=== PATIENT | female | born 1995 | race African-American/Black ===

== ENCOUNTER 2017-09-28 21:06 | Emergency (ER) | payer OTHER ==
[2017-09-28 22:14] LABS: BASOPHILS # (AUTO) 0.1 10^3/uL (0.0-0.1); BASOPHILS % (AUTO) 1.8 %; EOSINOPHILS # (AUTO) 0.4 10^3/uL (0.0-0.7); EOSINOPHILS % (AUTO) 6.3 %; HGB - HEMOGLOBIN 12.2 g/dL (12.0-16.0); LYMPHOCYTES # (AUTO) 2.3 10^3/uL (1.5-3.5); LYMPHOCYTES % (AUTO) 40.4 %; MEAN CORPUSCULAR HEMOGLOBIN 27.8 pg (27.0-31.0); MEAN CORPUSCULAR HGB CONC 32.9 g/dL (32.0-36.0); MEAN CORPUSCULAR VOLUME 84.5 fL (81.0-99.0); MEAN PLATELET VOLUME 8.6 fL (7.9-10.8); MONOCYTES # (AUTO) 0.4 10^3/uL (0.0-1.0); MONOCYTES % (AUTO) 6.6 %; NEUTROPHILS # (AUTO) 2.6 10^3/uL (1.5-6.6); NEUTROPHILS % (AUTO) 44.9 %; PLT - PLATELET COUNT 287 10^3/uL (130-450); RED BLOOD COUNT 4.39 10^6/uL (4.20-5.40); RED CELL DISTRIBUTION WIDTH 14.6 % (12.0-15.0); WHITE BLOOD COUNT 5.7 x10^3/uL (4.8-10.8)
[2017-09-28 22:26] LABS: ALBUMIN 4.3 g/dL (3.2-5.5); ALBUMIN/GLOBULIN RATIO 1.2 (1.0-2.2); BILIRUBIN,TOTAL 0.3 mg/dL (0.2-1.0); CALCIUM 8.8 mg/dL (8.5-10.3); CREATININE 0.8 mg/dL (0.4-1.0); TOTAL PROTEIN 7.8 g/dL (6.7-8.2)
[2017-09-28 23:31] LABS: BILIRUBIN,URINE NEGATIVE (NEGATIVE); GLUCOSE, URINE (UA) NEGATIVE (NEGATIVE); KETONES,URINE (UA) NEGATIVE (NEGATIVE); LEUKOCYTE ESTERASE, URINE TRACE (NEGATIVE); NITRITE,URINE NEGATIVE (NEGATIVE); OCCULT BLOOD,URINE MODERATE (NEGATIVE); PH,URINE 6.5 PH (5.0-7.5); PROTEIN,URINE NEGATIVE (NEGATIVE); UROBILINOGEN,URINE 0.2 (NORMAL) E.U./dL (NORMAL)
[2017-09-28 23:34] LABS: CLARITY,URINE CLEAR (CLEAR); HCG UR QUAL NEGATIVE
[2017-09-28 23:38] LABS: BACTERIA,URINE Rare /HPF (None Seen); RBC,URINE 0-5 /HPF (0-5); SQUAMOUS EPITHELIAL CELL,UR MANY Squamous (<= Few)
--- NOTE | 2017-09-29 01:01 | ED Physician Documentation ---
PD HPI ABD PAIN - Stated complaint Stated Complaint: ABD PX - Chief complaint Chief Complaint: Abd Pain - History obtained from History obtained from: Patient - History of Present Illness Timing - onset: How many days ago (2) Timing - duration: Days Timing - details: Gradual onset, Waxing and waning Pain level now: 4 Quality: Pain Location: LLQ Radiation: (left pelvis) Improved by: Other (no ameliorating factors) Worsened by: Palpation Associated symptoms: Vaginal dc. No: Fever, Nausea, Vomiting, Dysuria Similar symptoms before: Other (approximately one year ago, had similar symptoms , evaluated in another ED, cannot recall diagnosis but says she was put on antibiotics for pelvic infection) Review of Systems Constitutional: reports: Reviewed and negative Cardiac: reports: Reviewed and negative Respiratory: reports: Reviewed and negative GI: reports: Abdominal Pain. denies: Nausea, Vomiting : reports: Discharge, Vaginal bleeding (spotting). denies: Dysuria, Frequency , Now EGA PD PAST MEDICAL HISTORY - Past Medical History Past Medical History: No Cardiovascular: None Respiratory: None Neuro: None Endocrine/Autoimmune: None GI: None PRINCIPAL ACCOUNTS CLERK: None : None HEENT: None Psych: None Musculoskeletal: None Derm: None - Past Surgical History Past Surgical History: No - Present Medications Home Medications: Ambulatory Orders Medication Instructions Recorded Confirmed Metronidazole [Flagyl] 500 mg PO BID #14 tablet 09/29/17 - Allergies Allergies/Adverse Reactions: Allergies Allergy/AdvReac Type Severity Reaction Status Date / Time No Known Drug Allergies Allergy Verified 09/28/17 21:16 - Social History Does the pt smoke?: No Smoking Status: Never smoker Does the pt drink ETOH?: No Does the pt have substance abuse?: No - Immunizations Immunizations are current?: Yes - POLST Patient has POLST: No PD ED PE NORMAL - Vitals Vital signs reviewed: Yes - General General: Alert and oriented X 3, No acute distress, Well developed/nourished - Cardiac Cardiac: RRR, No murmur - Respiratory Respiratory: No respiratory distress, Clear bilaterally - Abdomen Abdomen: Normal bowel sounds, Soft, Non distended, Other (left anterior pelvic tenderness to palpation) - Back Back: No CVA TTP PD ED PE EXPANDED - Female Female : Normal external, Vaginal Discharge (mild amount thick, brown discharge), Choral Director present (MAUREEN Treviño). No: Skin lesions, CMT Results - Vitals Vitals: Vital Signs - 24 hr 09/28/17 09/29/17 09/29/17 21:15 02:10 03:11 Temperature 36.7 C Heart Rate 66 65 Respiratory 16 17 17 Rate Blood Pressure 136/72 H 114/69 O2 Saturation 100 99 09/29/17 09/29/17 03:46 04:23 Temperature Heart Rate Respiratory 15 16 Rate Blood Pressure O2 Saturation Oxygen O2 Source Room air - Labs Labs: Microbiology 09/29/17 04:25 Wet Prep - Final Vaginal Laboratory Tests 09/28/17 09/28/17 09/28/17 22:11 22:11 23:20 WBC 5.7 RBC 4.39 Hgb 12.2 Hct 37.1 MCV 84.5 MCH 27.8 MCHC 32.9 RDW 14.6 Plt Count 287 MPV 8.6 Neut # 2.6 Lymph # 2.3 [place] # 0.4 Eos # 0.4 Baso # 0.1 Absolute Nucleated RBC 0.01 Nucleated RBC % 0.1 Sodium 136 Potassium 3.3 L Chloride 105 Carbon Dioxide 25 Anion Gap 6.0 BUN 10 Creatinine 0.8 Estimated GFR (MDRD) 111 Glucose 125 H Calcium 8.8 Total Bilirubin 0.3 AST 25 ALT 19 Alkaline Phosphatase 109 Total Protein 7.8 Albumin 4.3 Globulin 3.5 Albumin/Globulin Ratio 1.2 Lipase 25 Urine Color YELLOW Urine Clarity CLEAR Urine pH 6.5 Ur Specific [place] <=1.005 Urine Protein NEGATIVE Urine Glucose (UA) NEGATIVE Urine Ketones NEGATIVE Urine Occult Blood MODERATE H Urine Nitrite NEGATIVE Urine Bilirubin NEGATIVE Urine Urobilinogen 0.2 (NORMAL) Ur Leukocyte Esterase TRACE H Urine RBC 0-5 Urine WBC 0-3 Ur Squamous Epith Cells MANY Squamous H Urine Bacteria Rare Ur Microscopic Review INDICATED Urine Culture Comments NOT INDICATED Urine HCG, Qual NEGATIVE - Rads (name of study) pelvic/TV US Radiology: Prelim report reviewed, See rad report PD MEDICAL DECISION MAKING - ED course Complexity details: reviewed results, re-evaluated patient, considered differential, d/w patient Departure - Departure Disposition: 01 Home, Self Care Clinical Impression: Pelvic pain Condition: Good Instructions: ED Vaginosis Bacterial Follow-Up: Adry Harrington DO [Provider Admit Priv/Credential] - Prescriptions: Metronidazole [Flagyl] 500 mg PO BID #14 tablet Discharge Date/Time: 09/29/17 04:20
[2017-09-29 03:11] VITALS: BP 114/69
--- NOTE | 2017-09-29 03:27 | Ultrasound Preliminary Report ---
Exam: US PELVIC W/DOPPLER LIMITED IMPRESSION: 1. Ovaries appear normal. 2. Thickened endometrium, likely due to phase of menstrual cycle. No vascular masses seen. [facility] SITE ID: [id number]
--- NOTE | 2017-09-29 03:34 | Ultrasound Report ---
REVISED: REPORT ORIGINALLY SIGNED ON 09/29/2017@0334; ORDERS LINKED ON 2017 jll EXAM: PELVIC ULTRASOUND EXAM DATE: 09/29/2017 02:50 AM. CLINICAL HISTORY: Left pelvic pain. LMP 09/14/2017. COMPARISON: None. TECHNIQUE: Real-time transabdominal pelvic scan performed to identify the uterus and adnexa and as an overview of other pelvic structures, followed by transvaginal scan to provide greater detail of the uterus and adnexa, with static image documentation. FINDINGS Uterus: 8.1 x 3.6 x 5.0 cm, volume 76 cc. Anteverted position. Normal overall size and echotexture. Masses: None. Endometrium: 23 mm. Thickened, likely due to phase of menstrual cycle. No definite vascular mass seen. Cervix: Unremarkable. Right Ovary: 3.3 x 1.6 x 3.0 cm, volume 8 cc. Normal echotexture and blood flow. Left Ovary: 2.7 x 1.2 x 2.3 cm, volume 4 cc. Normal echotexture and blood flow. Free Fluid: None. Other: None. IMPRESSION 1. Ovaries appear normal. 2. Thickened endometrium, likely due to phase of menstrual cycle. No vascular mass is seen. [facility] Referring Provider Line: [phone] SITE ID: [id number]
[2017-09-29] MEDS ORDERED: metroNIDAZOLE 250 MG TABLET PO STA (04:07)
== END 2017-09-29 04:20 | disposition home or self-care (01) ==
LOC: ED 21:06
DX: R10.2 Pelvic and perineal pain (principal); R10.32 Left lower quadrant pain; N89.8 Other specified noninflammatory disorders of vagina
CPT/HCPCS: 36415; 76830; 76856; 80053; 81001; 81025; 83690; 85025; 87210; 87491; 87591; 93976; 99283; 99284; A9270; 81003; 87086

== ENCOUNTER 2017-11-17 08:00 | Outpatient (CLI) | payer OTHER | END 2017-11-17 08:01 | disposition home or self-care (01) | LOC: LAB.R 08:00 | PROVIDERS: ATTEND Physician Assistant | DX: N76.0 Acute vaginitis (principal) | CPT/HCPCS: 87480; 87510; 87660 ==

== ENCOUNTER 2017-12-13 | Emergency (ER) | END 2017-12-13 02:43 | disposition home or self-care (01) ==

== ENCOUNTER 2018-02-24 19:13 | Outpatient (CLI) | payer OTHER ==
--- NOTE | 2018-02-25 00:52 | Ultrasound Report ---
Reason: ENCOUNTER FOR TEST, RESULT POSITIVE Procedure Date: 02/24/2018 Accession Number: [id number] / [id number] Procedure: US - OB First Trimester CPT Code: FULL RESULT: EXAM: FIRST TRIMESTER OBSTETRIC ULTRASOUND (Less than 11 weeks) EXAM DATE: 02/24/2018 08:06 PM. CLINICAL HISTORY: Encounter for test, result positive. LMP: Unknown. COMPARISONS: None. TECHNIQUE: Transabdominal and transvaginal ultrasound examination with static image documentation. FINDINGS: Gestational Sac: An intrauterine fluid-filled sac contains both an embryo and yolk sac. Small perigestational bleed. Embryo: CRL (crown-rump length) measures 30.1 mm corresponding to an estimated gestational age of 9 weeks 6 days. Heart Rate: 186 beats per minute. Placenta: Not visible at this gestational age. Amniotic fluid: Not accurately assessed at this gestational age. Uterus: Unremarkable anteverted appearance with exception of possible posterior intramural fibroid. Cervix: Closed. Right Ovary: Volume 9.3 cc. Normal echotexture and blood flow. Left Ovary: Volume 5.4 cc. Normal echotexture and blood flow. Free Fluid: None. Other: None. IMPRESSION: Single live intrauterine at 9 weeks 6 days by crown-rump length -- for an estimated delivery date of 09/23/2018. Small perigestational bleed. [facility]
== END 2018-02-24 19:14 | disposition home or self-care (01) ==
LOC: DI 19:13
PROVIDERS: ATTEND Obstetrics & Gynecology
DX: Z32.01 Encounter for pregnancy test, result positive (principal); O46.8X1 Other antepartum hemorrhage, first trimester; Z3A.09 9 weeks gestation of pregnancy
CPT/HCPCS: 76801

== ENCOUNTER 2018-03-01 08:00 | Outpatient (CLI) | payer OTHER ==
[2018-03-01 14:16] LABS: MUDS CUTOFF CONCENTRATIONS CUTOFF CONC BELOW:
[2018-03-01 15:24] LABS: AMPHETAMINE SCREEN,URINE NEGATIVE (NEGATIVE); BENZODIAZEPINES SCREEN, URINE NEGATIVE (NEGATIVE); COCAINE SCREEN URINE NEGATIVE (NEGATIVE); METHADONE SCREEN, URINE NEGATIVE (NEGATIVE); METHAMPHETAMINES SCREEN, URINE NEGATIVE (NEGATIVE); OPIATE SCREEN, URINE NEGATIVE (NEGATIVE); OXYCODONE SCREEN, URINE NEGATIVE (NEGATIVE); PROPOXYPHENE SCREEN, URINE NEGATIVE (NEGATIVE); TRICYCLIC ANTIDEPRESSANT,URINE NEGATIVE (NEGATIVE)
== END 2018-03-01 08:01 | disposition home or self-care (01) ==
LOC: LAB.R 08:00
PROVIDERS: ATTEND Registered Nurse
DX: R82.99 Other abnormal findings in urine (principal); Z36.9 Encounter for antenatal screening, unspecified
CPT/HCPCS: 80306; 87086; 87491; 87591

== ENCOUNTER 2018-03-01 11:56 | Outpatient (CLI) | payer OTHER ==
[2018-03-01 12:26] LABS: BASOPHILS # (AUTO) 0.1 10^3/uL (0.0-0.1); BASOPHILS % (AUTO) 1.1 %; EOSINOPHILS # (AUTO) 0.4 10^3/uL (0.0-0.7); EOSINOPHILS % (AUTO) 4.7 %; HGB - HEMOGLOBIN 13.2 g/dL (12.0-16.0); LYMPHOCYTES # (AUTO) 1.8 10^3/uL (1.5-3.5); LYMPHOCYTES % (AUTO) 19.4 %; MEAN CORPUSCULAR HEMOGLOBIN 29.9 pg (27.0-31.0); MEAN CORPUSCULAR HGB CONC 34.6 g/dL (32.0-36.0); MEAN CORPUSCULAR VOLUME 86.3 fL (81.0-99.0); MEAN PLATELET VOLUME 9.1 fL (7.9-10.8); MONOCYTES # (AUTO) 0.6 10^3/uL (0.0-1.0); MONOCYTES % (AUTO) 6.6 %; NEUTROPHILS # (AUTO) 6.2 10^3/uL (1.5-6.6); NEUTROPHILS % (AUTO) 68.2 %; PLT - PLATELET COUNT 225 10^3/uL (130-450); RED BLOOD COUNT 4.41 10^6/uL (4.20-5.40); RED CELL DISTRIBUTION WIDTH 15.7 % (12.0-15.0); WHITE BLOOD COUNT 9.1 x10^3/uL (4.8-10.8)
[2018-03-01 12:50] LABS: BILIRUBIN,URINE NEGATIVE (NEGATIVE); GLUCOSE, URINE (UA) NEGATIVE (NEGATIVE); KETONES,URINE (UA) NEGATIVE (NEGATIVE); LEUKOCYTE ESTERASE, URINE TRACE (NEGATIVE); NITRITE,URINE NEGATIVE (NEGATIVE); OCCULT BLOOD,URINE NEGATIVE (NEGATIVE); PROTEIN,URINE NEGATIVE (NEGATIVE); UROBILINOGEN,URINE 0.2 (NORMAL) E.U./dL (NORMAL)
[2018-03-01 12:52] LABS: CLARITY,URINE CLEAR (CLEAR)
[2018-03-01 13:02] LABS: BACTERIA,URINE None Seen /HPF (None Seen); RBC,URINE 0-5 /HPF (0-5); SQUAMOUS EPITHELIAL CELL,UR MANY Squamous (<= Few)
[2018-03-02 13:11] LABS: HEPATITIS C ANTIBODY NON-REACTIVE (NON-REACTIVE)
[2018-03-02 13:12] LABS: HEPATITIS B SURFACE ANTIGEN NON-REACTIVE (NON-REACTIVE)
[2018-03-02 14:18] LABS: HIV AG/AB 4TH GEN NON-REACTIVE (NON-REACTIVE)
== END 2018-03-01 11:57 | disposition home or self-care (01) ==
LOC: LAB 11:56
PROVIDERS: ATTEND Registered Nurse
DX: Z36.9 Encounter for antenatal screening, unspecified (principal); R82.99 Other abnormal findings in urine
CPT/HCPCS: 36415; 81001; 81599; 85025; 86592; 86762; 86803; 86850; 86900; 86901; 87340; 87389

== ENCOUNTER 2018-03-17 16:18 | Emergency (ER) | payer OTHER ==
[2018-03-17 16:42] LABS: BILIRUBIN,URINE NEGATIVE (NEGATIVE); GLUCOSE, URINE (UA) NEGATIVE (NEGATIVE); KETONES,URINE (UA) 40 mg/dL (NEGATIVE); LEUKOCYTE ESTERASE, URINE TRACE (NEGATIVE); NITRITE,URINE NEGATIVE (NEGATIVE); OCCULT BLOOD,URINE MODERATE (NEGATIVE); PROTEIN,URINE NEGATIVE (NEGATIVE); UROBILINOGEN,URINE 0.2 (NORMAL) E.U./dL (NORMAL)
[2018-03-17 16:45] LABS: CLARITY,URINE CLEAR (CLEAR)
[2018-03-17 16:51] LABS: AMORPHOUS SEDIMENT,UR Few /LPF; BACTERIA,URINE Many /HPF (None Seen); RBC,URINE 0-5 /HPF (0-5); SQUAMOUS EPITHELIAL CELL,UR MANY Squamous (<= Few)
[2018-03-17 17:04] LABS: BASOPHILS # (AUTO) 0.1 10^3/uL (0.0-0.1); BASOPHILS % (AUTO) 0.8 %; EOSINOPHILS # (AUTO) 0.5 10^3/uL (0.0-0.7); EOSINOPHILS % (AUTO) 5.5 %; HGB - HEMOGLOBIN 12.7 g/dL (12.0-16.0); LYMPHOCYTES # (AUTO) 1.9 10^3/uL (1.5-3.5); LYMPHOCYTES % (AUTO) 19.7 %; MEAN CORPUSCULAR HEMOGLOBIN 30.7 pg (27.0-31.0); MEAN CORPUSCULAR HGB CONC 35.5 g/dL (32.0-36.0); MEAN CORPUSCULAR VOLUME 86.6 fL (81.0-99.0); MEAN PLATELET VOLUME 8.9 fL (7.9-10.8); MONOCYTES # (AUTO) 0.4 10^3/uL (0.0-1.0); MONOCYTES % (AUTO) 3.8 %; NEUTROPHILS # (AUTO) 6.9 10^3/uL (1.5-6.6); NEUTROPHILS % (AUTO) 70.2 %; PLT - PLATELET COUNT 223 10^3/uL (130-450); RED BLOOD COUNT 4.14 10^6/uL (4.20-5.40); RED CELL DISTRIBUTION WIDTH 15.8 % (12.0-15.0); WHITE BLOOD COUNT 9.8 x10^3/uL (4.8-10.8)
[2018-03-17 17:09] LABS: ALBUMIN 3.8 g/dL (3.2-5.5); ALBUMIN/GLOBULIN RATIO 1.1 (1.0-2.2); BILIRUBIN,TOTAL 0.2 mg/dL (0.2-1.0); CREATININE 0.6 mg/dL (0.4-1.0); TOTAL PROTEIN 7.4 g/dL (6.7-8.2)
[2018-03-17] MEDS ORDERED: cephALEXin 250 MG CAPSULE PO STA (17:46)
--- NOTE | 2018-03-17 17:49 | ED Physician Documentation ---
History of Present Illness - Stated complaint Stated Complaint: BLEEDING/12WKS - Chief complaint Chief Complaint: Abd Pain - History obtained from History obtained from: Patient, Family - History of Present Illness Timing: Today Pain level max: 0 Pain level now: 0 Improved by: nothing Worsened by: nothing - Additonal information Additional information: Patient is a 22-year-old female 1 para 0 approximately 12 weeks who presents with vaginal bleeding today. She states she noticed a spot of blood on her underwear earlier. Is not currently having any bleeding. She has not been having cramping. No fevers. No vaginal discharge. Review of Systems Constitutional: denies: Fever, Chills Nose: denies: Rhinorrhea / runny nose, Congestion Throat: denies: Sore throat Respiratory: denies: Cough GI: denies: Nausea, Vomiting, Diarrhea : denies: Dysuria, Frequency, Hesitancy Skin: denies: Rash Musculoskeletal: denies: Neck pain, Back pain Neurologic: denies: Headache PD PAST MEDICAL HISTORY - Past Medical History Cardiovascular: None Respiratory: None Endocrine/Autoimmune: None GI: None ENAMEL PULVERIZER: None : None HEENT: None Psych: None Musculoskeletal: None Derm: None - Past Surgical History Past Surgical History: No - Present Medications Home Medications: Ambulatory Orders Medication Instructions Recorded Confirmed Cephalexin [Keflex] 500 mg PO Q6H #20 capsule 03/17/18 Pnv No.122/Iron/Folic Acid 1 each PO 03/17/18 [ Multi Tablet] - Allergies Allergies/Adverse Reactions: Allergies Allergy/AdvReac Type Severity Reaction Status Date / Time No Known Drug Allergies Allergy Verified 03/17/18 16:30 - Social History Does the pt smoke?: No Smoking Status: Never smoker Does the pt drink ETOH?: No Does the pt have substance abuse?: No - Immunizations Immunizations are current?: Yes - POLST Patient has POLST: No PD ED PE NORMAL - Vitals Vital signs reviewed: Yes - General General: Alert and oriented X 3, No acute distress - HEENT HEENT: Moist mucous membranes - Neck Neck: Supple, no meningeal sign - Cardiac Cardiac: RRR, Strong equal pulses - Respiratory Respiratory: No respiratory distress, Clear bilaterally - Abdomen Abdomen: Soft, Non tender, Non distended - Back Back: No spinal TTP - Derm Derm: Warm and dry - Extremities Extremities: No edema - Neuro Neuro: Alert and oriented X 3 Results - Vitals Vitals: Vital Signs - 24 hr 03/17/18 03/17/18 16:27 17:56 Temperature 36.6 C 36.6 C Heart Rate 67 66 Respiratory 16 16 Rate Blood Pressure 107/77 107/74 O2 Saturation 100 100 Oxygen O2 Source Room air - Labs Labs: Laboratory Tests 03/17/18 03/17/18 03/17/18 16:30 16:40 16:40 WBC 9.8 RBC 4.14 L Hgb 12.7 Hct 35.9 L MCV 86.6 MCH 30.7 MCHC 35.5 RDW 15.8 H Plt Count 223 MPV 8.9 Neut # (Auto) 6.9 H Lymph # (Auto) 1.9 [place] # (Auto) 0.4 Eos # (Auto) 0.5 Baso # (Auto) 0.1 Absolute Nucleated RBC 0.00 Nucleated RBC % 0.0 Sodium 131 L Potassium 3.5 Chloride 100 L Carbon Dioxide 25 Anion Gap 6.0 BUN 7 Creatinine 0.6 Estimated GFR (MDRD) 154 Glucose 151 H Calcium 9.0 Total Bilirubin 0.2 AST 16 ALT 10 Alkaline Phosphatase 102 Total Protein 7.4 Albumin 3.8 Globulin 3.6 Albumin/Globulin Ratio 1.1 Lipase 39 HCG, Quant Urine Color YELLOW Urine Clarity CLEAR Urine pH 7.0 Ur Specific [place] 1.025 Urine Protein NEGATIVE Urine Glucose (UA) NEGATIVE Urine Ketones 40 H Urine Occult Blood MODERATE H Urine Nitrite NEGATIVE Urine Bilirubin NEGATIVE Urine Urobilinogen 0.2 (NORMAL) Ur Leukocyte Esterase TRACE H Urine RBC 0-5 Urine WBC 6-10 H Ur Squamous Epith Cells MANY Squamous H Amorphous Sediment Few Urine Bacteria Many H Ur Microscopic Review INDICATED Urine Culture Comments NOT INDICATED Blood Type Antibody Screen 03/17/18 03/17/18 16:40 16:40 WBC RBC Hgb Hct MCV MCH MCHC RDW Plt Count MPV Neut # (Auto) Lymph # (Auto) [place] # (Auto) Eos # (Auto) Baso # (Auto) Absolute Nucleated RBC Nucleated RBC % Sodium Potassium Chloride Carbon Dioxide Anion Gap BUN Creatinine Estimated GFR (MDRD) Glucose Calcium Total Bilirubin AST ALT Alkaline Phosphatase Total Protein Albumin Globulin Albumin/Globulin Ratio Lipase HCG, Quant 91906.00 Urine Color Urine Clarity Urine pH Ur Specific [place] Urine Protein Urine Glucose (UA) Urine Ketones Urine Occult Blood Urine Nitrite Urine Bilirubin Urine Urobilinogen Ur Leukocyte Esterase Urine RBC Urine WBC Ur Squamous Epith Cells Amorphous Sediment Urine Bacteria Ur Microscopic Review Urine Culture Comments Blood Type O POSITIVE Antibody Screen NEGATIVE PD MEDICAL DECISION MAKING - ED course Complexity details: reviewed results, re-evaluated patient, considered differential, d/w patient ED course: Patient is a 22-year-old female, 1 para 0 who presents with a small amount of vaginal bleeding versus blood in the urine. She does have a UTI and will place on Keflex for this. Bedside ultrasound reveals a single intrauterine with a heart rate of approximately 162 bpm. There is good movement. Images were shown to the patient. Abdomen is soft, nontender nondistended. No acute laboratory abnormalities. We will have her follow-up with her doctor for further care. Patient counseled regarding signs and symptoms for which I believe and urgent re-evaluation would be necessary. Patient with good understanding of and agreement to plan and is comfortable going home at this time This document was made in part using voice recognition software. While efforts are made to proofread this document, sound alike and grammatical errors may occur. - Sepsis Event Vital Signs: Vital Signs - 24 hr 03/17/18 03/17/18 16:27 17:56 Temperature 36.6 C 36.6 C Heart Rate 67 66 Respiratory 16 16 Rate Blood Pressure 107/77 107/74 O2 Saturation 100 100 Oxygen O2 Source Room air Departure - Departure Disposition: 01 Home, Self Care Clinical Impression: Threatened affecting intrauterine UTI (urinary tract infection) Qualifiers: Urinary tract infection type: acute cystitis Hematuria presence: with hematuria Qualified Code(s): N30.01 - Acute cystitis with hematuria Condition: Good Instructions: ED Miscarriage Poss, ED UTI Cystitis Female Follow-Up: Brittny Huffman PA [Primary Care Provider] - Within 1 week Jeannette Obando CNM, MEDIA ANALYTICS MANAGER [Provider Admit Priv/Credential] - Prescriptions: Cephalexin [Keflex] 500 mg PO Q6H #20 capsule Comments: Take all antibiotics until gone. Return if you worsen. This should continue to improve over the next few days. Your ultrasound appears consistent with your dates and your hCG levels are 67,000 today. If you continue to have bleeding, you should follow-up with your doctor in 3 days for a repeat hCG Discharge Date/Time: 03/17/18 17:56
[2018-03-17 17:57] VITALS: BP 107/74
== END 2018-03-17 17:56 | disposition home or self-care (01) ==
LOC: ED 16:18
DX: O20.0 Threatened abortion (principal); O23.11 Infections of bladder in pregnancy, first trimester; Z3A.12 12 weeks gestation of pregnancy
CPT/HCPCS: 36415; 80053; 81001; 83690; 84702; 85025; 86850; 86900; 86901; 99283; A9270; 81003; 87086

== ENCOUNTER 2018-06-01 07:09 | Outpatient (CLI) | payer OTHER ==
--- NOTE | 2018-06-01 16:08 | Ultrasound Report ---
Reason: STATE, INCIDENTAL Procedure Date: 06/01/2018 Accession Number: [id number] / [id number] Procedure: US - OB Detailed Eval CPT Code: FULL RESULT: EXAM: COMPLETE OBSTETRICAL ULTRASOUND EXAM DATE: 06/01/2018 09:40 AM. CLINICAL HISTORY: anatomic survey. COMPARISON: 02/24/2018. TECHNIQUE: Real-time sonographic evaluation of the fetus performed by the r developer. Multiple dealer compliance representative static images were saved for review. DATING: Established EGA 23 weeks 5 days with SAJAN 09/23/2018 based on referring provider/first ultrasound. EGA 24 weeks 3 days with SAJAN 09/18/2018 based on the current ultrasound. GENERAL EVALUATION Friedman . Cardiac activity: 144 bpm. movement: Visualized. Presentation: Variable. Placenta: Anterior and right position. No evidence for previa. Umbilical cord: 3 vessel cord. Central placental cord origin. Amniotic fluid: SRIKANTH 22.5 MVP 8.4 cm. BIOMETRY Bi-Parietal Diameter (BPD): 6.1 cm, 24 weeks 6 days. Head Circumference (HC): 22.2 cm, 24 weeks 2 days. Abdominal Circumference (AC): 19.9 cm, 24 weeks 4 days. Femur Length (FL): 4.3 cm, 24 weeks 0 days. Estimated Weight: 689 g, 72nd percentile for 23 weeks 5 days. ANATOMY The intracranial structures, profile, face/nose/lips, spine, 4 chamber heart and outflow tracts, stomach, abdominal wall and cord insertion, diaphragm, kidneys, bladder, and extremities were visualized and demonstrate no abnormality. MATERNAL STRUCTURES Uterus: Unremarkable. Cervix: Long and closed. Transabdominal length 4.9 cm. Right ovary/adnexa: Unremarkable. Left ovary/adnexa: Unremarkable. Free fluid: None. IMPRESSION: 1. Friedman live intrauterine with gestational age 23 weeks 5 days based on referring provider and first ultrasound. 2. Estimated weight is within expected limits for assigned dating. 3. Normal anatomic survey. No anatomic abnormalities are detected at this time. [facility]
== END 2018-06-01 07:10 | disposition home or self-care (01) ==
LOC: DI 07:09
PROVIDERS: ATTEND Registered Nurse
DX: Z33.1 Pregnant state, incidental (principal)
CPT/HCPCS: 76811

== ENCOUNTER 2018-06-10 09:49 | Outpatient (CLI) | payer OTHER ==
[2018-06-10 11:09] LABS: MEAN CORPUSCULAR HEMOGLOBIN 32.4 pg (27.0-31.0); MEAN CORPUSCULAR HGB CONC 35.2 g/dL (32.0-36.0); MEAN CORPUSCULAR VOLUME 91.9 fL (81.0-99.0); RED BLOOD COUNT 3.72 10^6/uL (4.20-5.40); RED CELL DISTRIBUTION WIDTH 13.2 % (12.0-15.0); WHITE BLOOD COUNT 9.8 x10^3/uL (4.8-10.8)
== END 2018-06-10 09:50 | disposition home or self-care (01) ==
LOC: LAB 09:49
PROVIDERS: ATTEND Nurse Practitioner Obstetrics & Gynecology
DX: Z36.89 Encounter for other specified antenatal screening (principal)
CPT/HCPCS: 36415; 82950; 85027; 86850

== ENCOUNTER 2018-07-08 09:54 | Outpatient (CLI) | payer OTHER | END 2018-07-08 09:55 | disposition home or self-care (01) | LOC: LAB 09:54 | PROVIDERS: ATTEND Registered Nurse | DX: O99.810 Abnormal glucose complicating pregnancy (principal) | CPT/HCPCS: 36415; 82951; 82952 ==

== ENCOUNTER 2018-07-23 08:00 | Outpatient (CLI) | payer OTHER | END 2018-07-23 23:59 | disposition home or self-care (01) | LOC: LAB.R 08:00 | PROVIDERS: ATTEND Nurse Practitioner Obstetrics & Gynecology | DX: R82.79 Other abnormal findings on microbiological examination of urine (principal) | CPT/HCPCS: 87086 ==

== ENCOUNTER 2018-08-20 14:03 | Outpatient (CLI) | payer OTHER | END 2018-08-20 23:59 | disposition home or self-care (01) | LOC: LAB.R 14:03 | PROVIDERS: ATTEND Registered Nurse | DX: Z34.90 Encounter for supervision of normal pregnancy, unspecified, unspecified trimester (principal) | CPT/HCPCS: 87491; 87591; 87797 ==

== ENCOUNTER 2018-09-03 11:51 | Outpatient (CLI) | payer OTHER ==
[2018-09-04 16:48] LABS: HEPATITIS C ANTIBODY NON-REACTIVE (NON-REACTIVE)
[2018-09-04 17:41] LABS: HIV AG/AB 4TH GEN NON-REACTIVE (NON-REACTIVE)
== END 2018-09-03 11:52 | disposition home or self-care (01) ==
LOC: LAB 11:51
PROVIDERS: ATTEND Registered Nurse
DX: Z34.90 Encounter for supervision of normal pregnancy, unspecified, unspecified trimester (principal)
CPT/HCPCS: 36415; 81599; 86592; 86803; 87389

== ENCOUNTER 2018-09-19 09:08 | Inpatient (IN) | payer OTHER ==
[2018-09-19] MEDS ORDERED: LACTATED RINGERS 1,000 ML IV ONE (09:10)
[2018-09-19] MEDS ORDERED: OXYTOCIN/SODIUM CHLORIDE 500 ML IV ONE (09:10)
[2018-09-19] MEDS ORDERED: SODIUM CHLORIDE FLUSH 0.9% 10 ML SYRINGE ONE (09:29)
[2018-09-19] MEDS ORDERED: PENICILLIN G POTASSIUM 5,000,000 UNIT in SODIUM CHLORIDE 0.9% MINIBAG 100 ML IV ONE (09:30)
[2018-09-19] MEDS: SODIUM CHLORIDE FLUSH 0.9% 10 ML SYRINGE IVP PRN ×2 (09:35→23:24)
--- NOTE | 2018-09-19 09:35 | HISTORY & PHYSICAL EXAMINATION ---
Admit History - Visit Reason Visit Reason: Contractions - : 1 Parity: 0 Premature: 0 Ectopic: 0 : 0 Care: positive: [facility] Risk/History: positive: None Complications This : positive: None Smoking Status: Never smoker - Mother's Labs Mother's Blood Type: positive: O Mother's RH: positive: Positive GBS: positive: Group B Strep Positive Rubella Status: positive: Non-immune Meds/Allgy - Home Medications Home Medications: Ambulatory Orders Medication Instructions Recorded Confirmed Cephalexin [Keflex] 500 mg PO Q6H #20 capsule 03/17/18 Pnv No.122/Iron/Folic Acid 1 each PO 03/17/18 [ Multi Tablet] - Allergies Allergies/Adverse Reactions: Allergies Allergy/AdvReac Type Severity Reaction Status Date / Time No Known Drug Allergies Allergy Verified 03/17/18 16:30 Review of Systems - Constitutional Constitutional: denies: Fatigue, Fever, Chills, Malaise - Eyes Eyes: denies: Pain, Blurred vision, Spots in vision, Dipolpia - Cardiovascular Cariovascular: denies: Irregular heart rate, Chest pain, Edema - Respiratory Respiratory: denies: SOB at rest - Gastrointestinal Gastrointestinal: denies: Constipation, Diarrhea, Nausea, Vomiting - Integumentary Integumentary: denies: Rash, Pruritis - Neurological Neurological: denies: Headache - Psychiatric Psychiatric: denies: Depression, Anxiety Physical - Abdominal Exam Contraction Frequency (min/apart): 2-4 Contraction Intensity: positive: Strong Uterine Resting Tone: positive: Soft - Monitoring Heart Rate Baseline: 150 Strip Review: positive: Category I - Presentation Presentation: positive: Vertex - Vaginal Exam Membranes: positive: Membranes intact Dilation (in cm): 4-5 Effacement (%): 100 Station: positive: 0 Cervical Position: positive: Midposition - Speculum Exam Speculum Exam Performed: positive: No Plan for Labor - Plan For Labor I expect patient to be DC'd or transferred within 96 hours.: Yes Plan for Labor: HPI: This 23yo @ 39.3wks gestation by 9.5wk U/S presents to [facility] with c/o contractions since 0500 on 09/19/2018. She denies VB or Lof. She denies GRADY, visual disturbances, RUQ or epigastric pain. She has been a patient of [facility] through the duration of her . She has had an uncomplicated . She is GBS positive and will receive intrapartum prophylaxis per protocol. Dating criteria: LMP unknown Initial U/S: 02/24/2019 @ 9.5wks gestation give SAJAN 09/23/2018 OB Hx: G1 current PMHx: none PSHx: none Family Hx: none Social Hx: Never smoker, No ETOH or IVDA. [place] Physical Exam: Normocephalic, atraumatic Heart RRR w/o M/G/R Lungs CTAB Abdomen gravid, soft, nontender Contractions palpate strong every 2-4 minutes with soft resting tone FHR baseline 150, moderate variability, no accels, occasional early decel SVe 4-5/100/0, vertex, BOWI Bilateral LE's no edema Assessment: 23yo @ 39.3wks gestation GBS positive Active labor FHR Category I Plan: Continuous monitoring Jacuzzi per maternal request Epidural per maternal request Continue expectant management Anticipate spontaneous vaginal delivery
[2018-09-19] MEDS: LACTATED RINGERS 1,000 ML IV SCH ×2 (09:45→14:20)
[2018-09-19 10:45] LABS: BASOPHILS # (AUTO) 0.1 10^3/uL (0.0-0.1); BASOPHILS % (AUTO) 0.8 %; EOSINOPHILS % (AUTO) 0.3 %; HGB - HEMOGLOBIN 12.2 g/dL (12.0-16.0); LYMPHOCYTES # (AUTO) 1.7 10^3/uL (1.5-3.5); MEAN CORPUSCULAR HEMOGLOBIN 30.3 pg (27.0-31.0); MEAN CORPUSCULAR HGB CONC 34.5 g/dL (32.0-36.0); MEAN CORPUSCULAR VOLUME 87.9 fL (81.0-99.0); MEAN PLATELET VOLUME 10.9 fL (7.9-10.8); MONOCYTES # (AUTO) 0.6 10^3/uL (0.0-1.0); MONOCYTES % (AUTO) 7.6 %; NEUTROPHILS # (AUTO) 5.6 10^3/uL (1.5-6.6); NEUTROPHILS % (AUTO) 70.3 %; PLT - PLATELET COUNT 179 10^3/uL (130-450); RED BLOOD COUNT 4.01 10^6/uL (4.20-5.40)
--- NOTE | 2018-09-19 11:41 | PROVIDER PROGRESS NOTE ---
Labor Progress Note - Uterine Monitoring Uterine Monitoring Mode: positive: External toco Contraction Frequency (min/apart): 2-3 Contraction Intensity: positive: Strong Uterine Resting Tone: positive: Soft - Monitoring Monitor Mode: positive: External ultrasound Heart Rate Baseline: 140 Heart Rate Variability: positive: Moderate (6-25 bmp) Accelerations: positive: Present, 15x15 Decelerations: positive: Early, Intermittent (<50% x20 min) Strip Review: positive: Category I - Vaginal Exam Dilation (in cm): 7 Effacement (%): 100 Station: 0 Cervical Position: Midposition - Labor Progress Note Labor Progress Note/Additional Text: S: Breathing through contractions and coping well. Sitting on birthing ball at edge of the bed. Mom and supportive at the bedside. O: FHR baseline 140s, moderate variability, + accels, intermittent variable decelerations. SVE 7/100/0, midposition, vertex, BOWI Contractions palpate strong every 2-3 minutes with soft resting tone. A: 23yo @ 39.3wks gestation Active labor FHR Category I GBS positive - s/p loading dose of penicillin x 1 P: Continuous monitoring Continue expectant management Consider AROM after second dose of penicillin Anticipate spontaneous vaginal delivery.
[2018-09-19] MEDS ORDERED: PENICILLIN G POTASSIUM 2,500,000 UNIT in SODIUM CHLORIDE 0.9% 100ML 100 ML IV SCH (13:30)
[2018-09-19] MEDS ORDERED: BUPIVACAINE 0.25% PF 10 ML VIAL ONE (13:33)
[2018-09-19] MEDS ORDERED: fent/BUPIV 2 MCG/0.125% 250 ML EP ONE (13:33)
--- NOTE | 2018-09-19 14:01 | ANESTHESIA ---
Pre-Anesthesia VS, & Labs - Diagnosis Active labor - Procedure vaginal delivery Height 5 ft 3 in Weight (kg) 72.575 kg Body Mass Index 23.6 - NPO Other (has not been NPO) - Is Patient ?: Yes - Lab Results Current Lab Results: Laboratory Tests 09/19/18 10:33: WBC 8.0, RBC 4.01 L, Hgb 12.2, Hct 35.2 L, MCV 87.9, MCH 30.3, MCHC 34.5, RDW 13.0, Plt Count 179, MPV 10.9 H, Neut # (Auto) 5.6, Lymph # (Auto) 1.7, [place] # (Auto) 0.6, Eos # (Auto) 0.0, Baso # (Auto) 0.1, Absolute Nucleated RBC 0.00, Nucleated RBC % 0.0 Fish Bones: 09/19/18 10:33 Home Medications and Allergies Active Medications Lactated Ringer's (Lr) 1,000 mls @ 150 mls/hr IV .Q6H40M CHARLEEN Last Admin: 09/19/18 09:45 Dose: 150 mls/hr Penicillin G Potassium 2,500, (000 unit/ Sodium Chloride) 100 mls @ 200 mls/hr IV Q4H CHARLEEN Sodium Chloride (Normal Saline Flush 0.9%) 10 ml IVP PRN PRN PRN Reason: NEEDED PER PROVIDER ORDERS Last Admin: 09/19/18 09:35 Dose: 10 ml Sodium Chloride (Normal Saline Flush 0.9%) 10 ml IVP 0100,0900,1700 CHARLEEN Pnv No.122/Iron/Folic Acid [ Multi Tablet] 1 each PO 03/17/18 Allergies/Adverse Reactions: Allergies Allergy/AdvReac Type Severity Reaction Status Date / Time No Known Drug Allergies Allergy Verified 03/17/18 16:30 Anes History & Medical History - Anesthetic History Family history of Anesthesia Complications: Denies Family history of Malignant Hyperthermia: Denies - Medical History Cardiovascular: reports: None Pulmonary: reports: None Gastrointestinal: reports: None Urinary: reports: None Neuro: reports: None Musculoskeletal: reports: None Endocrine/Autoimmune: reports: None Blood Disorders: reports: None Skin: reports: None Smoking Status: Never smoker Psychosocial: reports: No issues indicated - Obstetrical History : 1 Parity: 0 Events: positive: None Complications: positive: None - Other History Other History: Patient is 9cm dilated at time of epidural placement Exam General: Alert, Oriented x3, Cooperative, No acute distress Dental: WNL Mouth Openin Fingerbreadth Neck Mobility: Normal Mallampati classification: II Thyromental Distance: 4-6 cm Mental/Cognitive Status: Alert/Oriented X3, Normal for patient, Other (Patient extremely uncomfortable with contractions) Plan Anesthesia Type: Epidural (Will place CSE due to late stage of labor.) Consent for Procedure(s) Verified and Reviewed: Yes Code Status: Attempt Resuscitation ASA classification: 2-Mild systemic disease Is this case an emergency?: No
[2018-09-19] MEDS ORDERED: NALBUPHINE 10 MG/ML AMP IVP PRN (14:03)
[2018-09-19] MEDS ORDERED: fent/BUPIV 2 MCG/0.125% 250 ML EP PRN ×2 (14:03→15:37)
[2018-09-19] MEDS ORDERED: LACTATED RINGERS 500 ML IV ONE (14:03)
[2018-09-19] MEDS ORDERED: ONDANSETRON 4 MG/2 ML VIAL IVP PRN (14:03)
[2018-09-19] MEDS ORDERED: NALOXONE 0.4 MG/ML VIAL IVP PRN (14:03)
[2018-09-19] MEDS ORDERED: ePHEDrine 50 MG/ML VIAL IVP PRN (14:03)
[2018-09-19] MEDS: PENICILLIN G POTASSIUM 2,500,000 UNIT in SODIUM CHLORIDE 0.9% 100ML 100 ML IV SCH (14:20)
[2018-09-19] MEDS ORDERED: ePHEDrine 50 MG/ML VIAL IVP ONE (14:26)
--- NOTE | 2018-09-19 15:39 | ANESTHESIA PROCEDURE NOTE ---
Anesthesia Epidural Template - Other Comments Other Comments: Patient reporting increased pain with contractions. Epidural bolused with 12ml from epidural gtt(0.125% bupivicaine +2mcg/ml fentanyl) and drip increased to 10ml/hr with 4ml [id number] [id number]. Patient reports improvement in pain after bolus
[2018-09-19] MEDS ORDERED: SODIUM CHLORIDE 0.9% 10 ML ONE (15:49)
[2018-09-19] MEDS ORDERED: fentaNYL 100 MCG/2 ML VIAL ONE (15:49)
[2018-09-19] MEDS ORDERED: WITCH HAZEL/GLYCERIN 1 EACH MED..PAD TOP PRN (16:34)
[2018-09-19] MEDS ORDERED: HYDROCORTISONE 1% CREAM 28 GM TUBE PR PRN (16:34)
[2018-09-19] MEDS ORDERED: OXYTOCIN/SODIUM CHLORIDE 500 ML IV PRN (16:35)
--- NOTE | 2018-09-19 17:14 | DELIVERY NOTE ---
Delivery Note - Labor Labor: positive: Spontaneous - Delivery Method Delivery Method: positive: Spontaneous vaginal delivery - Presentation Presentation: positive: Vertex, HERB - right occiput anterior - Nuchal Cord Nuchal Cord: positive: None - Episiotomy Type Episiotomy Type: positive: None - Laceration Laceration: positive: 1st degree - Suture Suture Type: positive: Vicryl Suture Size: positive: 3-0 - Delivery Outcome Delivery Outcome: positive: Livebirth - [place]: positive: Placed in direct skin contact with mother, Bulb syringe, Stimulated, Warmed, [place] used, Warmer used sex: positive: Male - Cord Cord: positive: 3 vessels - Placenta Placenta: positive: Intact, Spontaneous - Estimated Blood Loss Estimated Blood Loss (in cc): 200 - Post Delivery Events Post Delivery Events: positive: No post delivery events - Delivery Comments (Free Text/Narrative) Delivery Comments (Free Text/Narrative): Labor: This 23yo @ 39.3wks gestation by LM_ presented at 0930 on 09/19/2018 in active labor. Cervix was 4-5/100/0, vertex. FHR pattern demonstrated category I pattern. Patient progressed to 8/100/0 and epidural was placed per maternal request. She is GBS positive and received 2 doses of penicillin for prophylaxis per protocol. Patient progressed to c/c/+3 and SROM at 1555. Small amount of amniotic fluid was noted to be clear. heart tones became difficult to trace at 1559. Maternal O2 was applied via nonrebreather mask and patient rotated right side, then left side. of viable male occurred at 1605 for a total second stage duration of 10 minutes. Normal of viable male infant. No nuchal cord. The was placed on maternal abdomen, stimulated, and dried. Infant was noted to have no tone, no cry, and umbilical cord pulsation <100bpm. Umbilical cord was clamped by CNM and cut by FOB and was taken to warmer. received PPV, suctioning, CPAP, and blow by with good response to initial resuscitative measures. Apgars were 0/8/9 at 1, 5, and 10 minutes respectively. RT, anesthesia, and Cord gases and cord blood were obtained. 3VC noted. Pitocin administered via IV for hemostasis. Placenta delivered spontaneously and intact at 1608. EBL 200mL. Uterine fundus firm and there is no excessive bleeding. The perineum, vagina, and cervix were inspected and found to have first degree perineal laceration which was repaired using 3-[address]-1 needle in standard fashion under sterile conditions. Tissues well approximated. Skin to skin contact initiated. Both mother and baby were left in stable condition.
[2018-09-19] MEDS: ACETAMINOPHEN 500 MG TABLET PO SCH (21:24)
[2018-09-19] MEDS: DOCUSATE SODIUM 100 MG CAPSULE PO SCH (21:25)
[2018-09-19] MEDS: IBUPROFEN 800 MG TABLET PO SCH (23:15)
[2018-09-20] MEDS: IBUPROFEN 800 MG TABLET PO SCH ×5 (03:56→21:54)
--- NOTE | 2018-09-20 06:46 | PROVIDER PROGRESS NOTE ---
Subjective - Subjective Subjective: S: Bonding well with baby. Expressed concern throughout the night that baby was not getting enough milk with secondary to hos loss of 2oz ([id number]-->[id number]) so they supplemented with formula throughout the night. Extensively reviewed this morning. Advised skin to skin contact throughout the day and special attention to today. She requests something more for pain management than tylenol and ibuprofen and states the majority of her discomfort is at her perineum. Bleeding decreased and is light. O: Bp 103/55, HR 54, RR 16, T 36.6 Heart RRR w/o M/G/R, lungs CTAB, abdomen soft and nontender with fundus firm at U-1. Perineum intact and repair with mild edema. Bilateral Le's no edema. A: 23yo -->P1 s/p PPD#1 s/p TSVD of viable male infant - supplemented with formula First degree perineal laceration intact P: Continue routine care and medications. [place] 5/325 ordered for pain management throughout the day. Reviewed PRN use. Extensive teaching about today. Will evaluate for discharge home tomorrow. Objective - Vital Signs/Intake & Output Vital Signs: Vital Signs x48h Temp Pulse Resp BP Pulse Ox 09/20/18 04:01 36.6 C 54 L 16 103/55 L 100 09/19/18 23:12 37.2 C 58 L 18 111/62 100 Intake & Output: Intake & Output 09/17/18 09/18/18 09/19/18 09/20/18 23:59 23:59 23:59 23:59 Intake Total 2087.5 Output Total 1600 Balance 487.5 - Lab Results Fish Bones: 09/19/18 10:33 Other Labs: Lab Results x24hrs 09/19/18 Range/Units 10:33 WBC 8.0 (4.8-10.8) x10^3/uL RBC 4.01 L (4.20-5.40) 10^6/uL Hgb 12.2 (12.0-16.0) g/dL Hct 35.2 L (37.0-47.0) % MCV 87.9 (81.0-99.0) fL MCH 30.3 (27.0-31.0) pg MCHC 34.5 (32.0-36.0) g/dL RDW 13.0 (12.0-15.0) % Plt Count 179 (130-450) 10^3/uL MPV 10.9 H (7.9-10.8) fL Neut # (Auto) 5.6 (1.5-6.6) 10^3/uL Lymph # (Auto) 1.7 (1.5-3.5) 10^3/uL [place] # (Auto) 0.6 (0.0-1.0) 10^3/uL Eos # (Auto) 0.0 (0.0-0.7) 10^3/uL Baso # (Auto) 0.1 (0.0-0.1) 10^3/uL Absolute Nucleated RBC 0.00 x10^3/uL Nucleated RBC % 0.0 /100WBC
[2018-09-20] MEDS: ACETAMINOPHEN 500 MG TABLET PO SCH ×3 (06:56→19:48)
[2018-09-20] MEDS: DOCUSATE SODIUM 100 MG CAPSULE PO SCH ×2 (08:09→19:48)
[2018-09-20] MEDS: HYDROcod/ACETAM 5/325 MG TABLET PO PRN ×2 (08:09→16:00)
[2018-09-20] MEDS ORDERED: MEASLES,MUMPS & RUBELLA VACC 0.5 ML VIAL SUBQ ONE (09:00)
[2018-09-20] MEDS: SODIUM CHLORIDE FLUSH 0.9% 10 ML SYRINGE IVP SCH ×3 (17:54→17:56)
[2018-09-20] MEDS: LACTATED RINGERS 1,000 ML IV SCH ×3 (17:55→17:57)
[2018-09-20] MEDS: PENICILLIN G POTASSIUM 2,500,000 UNIT in SODIUM CHLORIDE 0.9% 100ML 100 ML IV SCH ×4 (17:55→17:58)
[2018-09-21] MEDS: ACETAMINOPHEN 500 MG TABLET PO SCH ×2 (05:19→12:46)
[2018-09-21] MEDS: IBUPROFEN 800 MG TABLET PO SCH ×2 (05:19→08:59)
--- NOTE | 2018-09-21 08:21 | Discharge Plan ---
Discharge Plan Disposition: 01 Home, Self Care Condition: Good Diet: Regular Activity Restrictions: pelvic rest x6 weeks Shower Restrictions: No (NO TUB BATHS) Driving Restrictions: No Weight Bearing: Full Weight Instruction Topics: Vaginal After, Breastfeed How To, Exercises Kegel Additional Instructions or Follow Up instructions: x1 week in outpatient clinic w/ Jeannette Obando CNM, ricardo PRN No Smoking: If you smoke, Please STOP! Call for help. Follow-up with: Brittny Huffman PA [Primary Care Provider] - Jeannette Obando CNM, ARNP [Provider Admit Priv/Credential] -
--- NOTE | 2018-09-21 08:26 | DISCHARGE SUMMARY ---
"Discharge Summary Admit Date: 09/19/18 Discharge Date: 09/21/18 Discharging Provider: MICHELET Code Status: Attempt Resuscitation Condition at Discharge: Good Discharge Disposition: 01 Home, Self Care Discharge Facility Name: [facility] - DIAGNOSES Admission Diagnoses: SPONTANEOUS ACTIVE LABOR @ TERM Discharge Diagnoses with Status of Each Condition: - HPI History of Present Illness: DONNY FRANCIS IS A 23 Y/O [id number] WHO PRESENTED IN ACTIVE, SPONTANEOUS L ABOR @ TERM. SHE PROGRESSED STEADILY TO 8CM DILATATION & RECEIVED EPIDURAL ANESTHESIA PER HER REQUEST @ THAT TIME. SHE RECEIVED 2 DOSES OF IV PCN FOR GBS PROPHYLAXIS. SHE PROGRESSED TO COMPLETE DILATATION & DELIVERED A VIABLE MALE INFANT VAGINALLY OVER A 1ST DEGREE PERINEAL LACERATION, WHICH WAS REPAIRED. - CONSULTS | PROCEDURES Consultations: ANESTHESIA Procedures: IV PCN ADMINISTRATION FOR IPAP EPIDURAL PLACEMENT REPAIR OF 1ST DEGREE PERINEAL LACERATION - HOSPITAL COURSE Hospital Course: , DONNY IS DOING WELL. SHE IS AMBULATING & VOIDING W/O DISCOMFORT OR DIFFICULTY. SHE DENIES INCONTINENCE. SHE IS PASSING FLATUS & TOLERATING A REGULAR DIET. SHE REPORTS MINIMAL VAGINAL BLEEDING & MINIMAL DISCOMFORT. SHE IS EXCLUSIVELY W/O DIFFICULTY OR COMPLAINT. SHE IS PLANNING CONDOM USE FOR PP CONTRACEPTION & DOES NOT PLAN A SHORT INTERPREGNANCY INTERVAL. SHE IS NOT PLANNING TO RETURN TO WORK. HER PARTNER WILL HAVE 2 WEEKS OFF TO SUPPORT HER & HER MOTHER HAS RELOCATED TO THE AREA FOR THE NEXT YEAR. SHE IS ABLE TO FULLY ARTICULATE PP WARNING S/SX, INCLUDING PP DEPRESSION S/SX, AND PP AFTERCARE INSTRUCTIONS. SHE IS READY TO LEAVE THE HOSPITAL. - ALLERGIES Allergies/Adverse Reactions: Allergies Allergy/AdvReac Type Severity Reaction Status Date / Time No Known Drug Allergies Allergy Verified 03/17/18 16:30 - MEDICATIONS Home Medications: Ambulatory Orders Medication Instructions Recorded Confirmed Pnv No.122/Iron/Folic Acid 1 each PO 03/17/18 [ Multi Tablet] Ibuprofen [Motrin] 800 mg PO Q6H tablet 09/21/18 - PHYSICAL EXAM AT DISCHARGE General Appearance: positive: No acute distress, Alert Eyes Bilateral: positive: Normal inspection, PERRL, EOMI Respiratory: positive: Chest non-tender, No respiratory distress, Breath sounds nml Cardiovascular: positive: Regular rate & rhythm, No murmur Abdomen: positive: Non-tender, No distention, Other (FF U-2) Skin: positive: Color nml, No rash, Warm, Dry Extremities: positive: Non-tender, Full ROM, Nml appearance, No pedal edema. negative: Calf tenderness, Paula's sign/cords Neurologic/Psychiatric: positive: Oriented x3, CN's nml (2-12), Motor nml, Sensa tion nml, Mood/affect nml Physical Exam Other/Comments: BREASTS B/L S, NT; NIPPLES B/L INTACT & EVERTED; COLOSTRUM READILY EXPRESSIBLE PERINEUM W/ SUTURES INTACT; NO ERYTHEM/EDEMA/ECCHYMOSIS; MINIMAL LOCHIA RUBRA - LABS Result Diagrams: 09/19/18 10:33 - FOLLOW UP Follow Up: 1 WEEK, 3 WEEKS & 8 WEEKS W/ LOLY STANFORD CNM; EARLIER PRN - TIME SPENT Time Spent in Discharge (Minutes): 25"
[2018-09-21] MEDS: DOCUSATE SODIUM 100 MG CAPSULE PO SCH (08:59)
[2018-09-21 11:51] VITALS: BP 105/71
[2018-09-21] MEDS ORDERED: MEASLES,MUMPS & RUBELLA VACC 0.5 ML VIAL SUBQ ONE (12:00)
--- NOTE | 2018-09-21 14:18 | Labor Flowsheet ---
Labor Flowsheet Datetime Report Generated by CPN: 09/21/2018 14:18 Datetime: 09/21/2018 11:50 VITAL SIGNS NBP Sys/[place]/Mean (mmHg): 105 : 71 : 79 Pulse: 71 LaborFlag: Labor Datetime: 09/21/2018 11:49 SpO2 (%): 100 Datetime: 09/19/2018 16:05 Contraction Comments: patient coached and effectively pushes to delivery. Delivery of male a pgars 0/8/9 ASSESSMENT A Monitor Mode: External US Comments: unable to attain heart rate despite continued efforts. 2nd RN called to assist in u /s movement to attain heart rate. Datetime: 09/19/2018 16:00 FHR Baseline Rate : 90 FHR Baseline Changes: Bradycardia Station: 3 Membrane Comments: 2nd RN and orientee called to room for delivery related to prolonged deceleratio n and now lost tracing. continued inability to dopple heart rate. Provider remains at perineum Datetime: 09/19/2018 15:55 UTERINE ACTIVITY Monitor Mode: External Frequency (min): 1.5-2 Quality: Strong Duration (sec): 60-100 Pattern: Normal: <= 5 Contractions in 10 Minutes Resting Tone (Palpate): Relaxed Variability: Moderate 6-25 bpm Accelerations: 15X15 Decelerations: Prolonged Category: Category II VAGINAL EXAM Dilatation (cm): 10.0 Exam by: Ana Obando CNM Membrane Status: Ruptured Membranes Ruptured Date/Time: 09/19/2018 15:55 Membranes Rupture Method: Spontaneous Amniotic Fluid Color: Clear Amniotic Fluid Amount: Scant Vaginal Bleeding: Normal Show Vaginal Exam Comments: provider to perineum, noted SROM, head +3 station. Active pushing begi ns. Datetime: 09/19/2018 15:45 Anesthesia Comments: patient states feeling much less pain with contractions. Datetime: 09/19/2018 15:44 Actions for Decelerations: Oxygen Applied Oxygen Amount (LPM): 10 Datetime: 09/19/2018 15:27 COMMUNICATION Communication Comments: CNM updated on patient pain and POC to have anesthesia evaluate patient pa in. Datetime: 09/19/2018 15:15 Temperature (C): 36.9 Datetime: 09/19/2018 14:30 Patient Care Comments: patient nauseated. LR to bolus. Anesthesia remains at bedside. Orders reciev ed to administer 5mg ephederine x1 (given). Hypotension continues, patient experiences another hypote nsive episode (large emesis) and orders received to administer second dose of 5mg ephederine x1 (give n). Anesthesia remained at bedside until hypotension resolved, patient pain well controlled and patie nt deamed stable. See anesthesia documentation. Anesthesia Level Check: T9 Datetime: 09/19/2018 14:10 MEDICATIONS Antibiotics: Penicillin IV (Units) @ (Annotations: 2,500,000) Datetime: 09/19/2018 13:44 ANESTHESIA Anesthesia Plans: Epidural Epidural Positioning: Sitting Epidural Procedure: Test Dose Datetime: 09/19/2018 13:40 Anesthesia Interview: I Datetime: 09/19/2018 13:21 Pain Assessment Comments: All notes written on tracing between 1230- current completed by K. Burckhardt RNC. Noted provider log-in after documentation completed. Datetime: 09/19/2018 13:19 Effacement (%): 100 Datetime: 09/19/2018 13:00 PAIN Pain Scale: 10 PATIENT CARE IV/Blood Work: IV Bolus Started Datetime: 09/19/2018 12:18 Stage of : Labor
== END 2018-09-21 14:00 | disposition home or self-care (01) | DRG 807 ==
LOC: WFO 09:08 → FBP 09:10 → WFO 09:30 → FBP 09:31
PROVIDERS: ADMIT Nurse Practitioner Obstetrics & Gynecology; ATTEND Nurse Practitioner Obstetrics & Gynecology
PROC: 10E0XZZ Delivery of Products of Conception, External Approach (ICD-10-PCS; principal; 2018-09-19)
PROC: 0HQ9XZZ Repair Perineum Skin, External Approach (ICD-10-PCS; 2018-09-19)
DX: O99.824 Streptococcus B carrier state complicating childbirth (principal); Z37.0 Single live birth; O70.0 First degree perineal laceration during delivery; Z3A.39 39 weeks gestation of pregnancy
CPT/HCPCS: 36415; 85025; A9270; J7120